=== PATIENT | male | born 1965 | race African-American/Black ===

== ENCOUNTER 2021-01-17 05:55 | Emergency (ER) | payer OTHER ==
[~2021-01-17] VITALS: Ht 180.3 cm; Wt 117.9 kg
[2021-01-17] MEDS ORDERED: EPINEPHRINE HCL 1:1000 1ML 1 MG/ML AMP IM ONE (06:15)
[2021-01-17] MEDS ORDERED: SODIUM CHLORIDE 0.9% 1000ML 1,000 ML IV STA (06:15)
[2021-01-17] MEDS ORDERED: FAMOTIDINE 20 MG/2 ML VIAL IV STA (06:17)
[2021-01-17] MEDS ORDERED: EPINEPHRINE HCL 1:1000 1ML 1 MG/ML AMP ONE (06:23)
[2021-01-17] MEDS ORDERED: DIPHENHYDRAMINE HCL INJ 50 MG/ML VIAL IV ONE (06:30)
[2021-01-17] MEDS ORDERED: METHYLPREDNISOLONE SOD SUCC 125 MG/2ML VIAL IV ONE (06:30)
[2021-01-17] MEDS ORDERED: METHYLPREDNISOLONE SOD SUCC 125 MG/2ML VIAL ONE (06:38)
[2021-01-17] MEDS ORDERED: SODIUM CHLORIDE 0.9% 1000ML 1,000 ML ONE (06:38)
[2021-01-17] MEDS ORDERED: PEPCID20 MG PO (07:40)
[2021-01-17] MEDS ORDERED: PREDNISONE20 MG PO (07:40)
[2021-01-17 07:56] VITALS: BP 128/65
== END 2021-01-17 07:56 | disposition home or self-care (01) ==
LOC: FSED 06:15
DX: I95.9 Hypotension, unspecified (principal); T39.315A Adverse effect of propionic acid derivatives, initial encounter; T78.2XXA Anaphylactic shock, unspecified, initial encounter; I10 Essential (primary) hypertension
CPT/HCPCS: 96372; 96374; 96375; 96376; 99283; J0171; J1200; J2930; J7030

== ENCOUNTER 2024-02-12 09:16 | Inpatient (IN) | payer OTHER ==
[~2024-02-12] VITALS: Ht 180.3 cm; Wt 117.9 kg
[2024-02-12] VITALS (10 sets, daily range): BP systolic 150–178; BP diastolic 65–108; PULSE 63–78; RESP 18–22; TEMP 98.3–98.8; O2SAT 95–99
[~2024-02-12 09:16] MED LIST: PEPCID20 MG PO; PREDNISONE20 MG PO
[2024-02-12] MEDS ORDERED: HYDRALAZINE HC100 MG PO (09:50)
[2024-02-12] MEDS ORDERED: LOSARTAN POTAS100 MG PO (09:50)
[2024-02-12] MEDS ORDERED: CLONIDINE1 EACH TD (09:50)
[2024-02-12] MEDS ORDERED: NIFEDIPINE ER90 MG PO (09:50)
[2024-02-12] MEDS ORDERED: CARVEDILOL12.5 MG PO (09:50)
[2024-02-12] MEDS ORDERED: FUROSEMIDE40 MG PO (09:50)
[2024-02-12] MEDS ORDERED: CLONIDINE HCL0.1 MG PO (09:50)
[2024-02-12 09:53] LABS: BASOPHILS % 0.4 % (0.0-1.0); EOSINOPHILS # (AUTO) 0.2 (0.0-0.4); EOSINOPHILS % 2.4 % (0.0-6.0); HEMATOCRIT 32.6 % (38.2-49.6); HEMOGLOBIN 10.5 g/dL (14.0-18.0); LYMPHOCYTES # (AUTO) 0.8 (1.0-3.2); LYMPHOCYTES % 9.5 % (18.0-39.1); MEAN CORPUSCULAR HEMOGLOBIN 30.1 pg (28-32); MEAN CORPUSCULAR HGB CONC 32.2 g/dL (31-35); MEAN CORPUSCULAR VOLUME 93.4 fL (81-99); MONOCYTES # (AUTO) 0.9 (0.2-0.8); MONOCYTES % 10.6 % (4.4-11.3); NEUTROPHILS # (AUTO) 6.3 (2.1-6.9); NEUTROPHILS % 75.4 % (38.7-80.0); PLATELET COUNT 135 x10e3/uL (140-360); RED BLOOD COUNT 3.49 x10e6/uL (4.3-5.7); RED CELL DISTRIBUTION WIDTH 15.1 % (11.7-14.4); WHITE BLOOD COUNT 8.31 x10e3/uL (4.8-10.8)
[2024-02-12 10:42] LABS: ALBUMIN 3.4 g/dL (3.5-5.0); ALBUMIN/GLOBULIN RATIO 0.9 (0.8-2.0); ANION GAP 13.8 mmol/L (8-16); BILIRUBIN,TOTAL 0.5 mg/dL (0.2-1.2); CALCIUM 8.9 mg/dL (8.4-10.2); CREATININE, SERUM 2.19 mg/dL (0.72-1.25); POTASSIUM 3.8 mmol/L (3.5-5.1); TOTAL PROTEIN 7.1 g/dL (6.5-8.1)
[2024-02-12 10:48] LABS: TROPONIN I 0.054 ng/mL (0-0.300)
[2024-02-12] MEDS ORDERED: SODIUM CHLORIDE FLUSH 10 ML SYR INJ PRN (12:00)
[2024-02-12] MEDS: ONDANSETRON HCL INJ 2MG/ML 2ML 2 MG/ML VIAL IV PRN (12:31)
[2024-02-12] MEDS: FUROSEMIDE INJ 10 MG/ML 2 ML VIAL IV ONE (12:31)
[2024-02-12] MEDS: LABETALOL HCL 5 MG/ML 20ML VIAL IV STA (12:31)
[2024-02-12] MEDS: HYDRALAZINE HCL 20 MG/ML VIAL IV ONE ×2 (14:20→15:40)
[2024-02-12] MEDS: CLONIDINE HCL 0.1 MG TAB PO ONE (15:37)
[2024-02-12] MEDS ORDERED: LIDOCAINE 4% PATCH TP PRN (16:00)
[2024-02-12] MEDS ORDERED: POTASSIUM CHLORIDE 20 MEQ TAB CR PO PRN (16:00)
[2024-02-12] MEDS ORDERED: ACETAMINOPHEN 325 MG TAB PO PRN (16:00)
[2024-02-12] MEDS ORDERED: SIMETHICONE 80 MG CHEW PO PRN (16:00)
[2024-02-12] MEDS ORDERED: ALBUTEROL/IPRATROPIUM 3 ML NEB NEB PRN (16:00)
[2024-02-12] MEDS ORDERED: BENZONATATE 100 MG CAP PO PRN (16:00)
[2024-02-12] MEDS ORDERED: DIPHENHYDRAMINE HCL 25 MG CAP PO PRN (16:00)
[2024-02-12] MEDS ORDERED: MELATONIN 5 MG TABLET PO PRN (16:00)
[2024-02-12] MEDS ORDERED: DEXTROSE 50% SYRINGE 50 ML IV PRN (16:00)
[2024-02-12] MEDS: NIFEDIPINE CR 30 MG TAB PO SCH (16:15)
[2024-02-12] MEDS: CLONIDINE HCL 0.1 MG/24 HR 1 EA PATCH TOP SCH (17:32)
[2024-02-12] MEDS: CARVEDILOL 12.5 MG TAB PO SCH (17:33)
[2024-02-12] MEDS: ENOXAPARIN SOD INJ 40 MG/0.4 ML SYR SC SCH (17:33)
[2024-02-12] MEDS: ASPIRIN 81 MG CHEW TAB PO ONE ×2 (21:30→22:06)
[2024-02-12] MEDS: ATORVASTATIN 40 MG TAB PO SCH (21:30)
[2024-02-12] MEDS: FUROSEMIDE INJ 10 MG/ML 4 ML VIAL IV SCH (21:31)
[2024-02-13] VITALS (11 sets, daily range): BP systolic 163–188; BP diastolic 79–91; PULSE 56–78; RESP 17–21; TEMP 97.7–99.3; O2SAT 95–100
[2024-02-13 05:14] LABS: BASOPHILS % 0.5 % (0.0-1.0); EOSINOPHILS # (AUTO) 0.1 (0.0-0.4); EOSINOPHILS % 2.3 % (0.0-6.0); HEMATOCRIT 29.1 % (38.2-49.6); HEMOGLOBIN 9.5 g/dL (14.0-18.0); LYMPHOCYTES # (AUTO) 1.1 (1.0-3.2); LYMPHOCYTES % 17.4 % (18.0-39.1); MEAN CORPUSCULAR HEMOGLOBIN 30.2 pg (28-32); MEAN CORPUSCULAR HGB CONC 32.6 g/dL (31-35); MEAN CORPUSCULAR VOLUME 92.4 fL (81-99); MONOCYTES % 15.6 % (4.4-11.3); NEUTROPHILS # (AUTO) 3.9 (2.1-6.9); NEUTROPHILS % 63.9 % (38.7-80.0); PLATELET COUNT 121 x10e3/uL (140-360); RED BLOOD COUNT 3.15 x10e6/uL (4.3-5.7); RED CELL DISTRIBUTION WIDTH 15.3 % (11.7-14.4)
[2024-02-13 05:44] LABS: ANION GAP 14.6 mmol/L (8-16); CALCIUM 8.6 mg/dL (8.4-10.2); CREATININE, SERUM 2.32 mg/dL (0.72-1.25); MAGNESIUM 1.9 MG/DL (1.3-2.1); PHOSPHORUS 3.4 MG/DL (2.3-4.7); POTASSIUM 3.6 mmol/L (3.5-5.1)
[2024-02-13 06:04] LABS: THYROID STIMULATING HORMONE 1.304 uIU/mL (0.350-4.940)
[2024-02-13] MEDS: PANTOPRAZOLE SOD 40 MG TABEC PO SCH (08:18)
[2024-02-13] MEDS: ASPIRIN 81 MG ENTERIC COATED PO SCH (08:19)
[2024-02-13] MEDS: DOCUSATE SODIUM 100 MG CAP PO PRN (08:19)
[2024-02-13] MEDS: HYDRALAZINE HCL 100 MG TABLET PO SCH (08:19)
[2024-02-13] MEDS: LOSARTAN POTASSIUM 100 MG TAB PO SCH (08:19)
[2024-02-13] MEDS ORDERED: FUROSEMIDE 40 MG TAB PO SCH (09:00)
[2024-02-13] MEDS: NIFEDIPINE CR 30 MG TAB PO ONE (15:57)
[2024-02-13] MEDS: HYDRALAZINE HCL 20 MG/ML VIAL IV PRN (15:58)
[2024-02-14] VITALS (13 sets, daily range): BP systolic 171–189; BP diastolic 84–92; PULSE 55–75; RESP 18–21; TEMP 98–98.6; O2SAT 95–100
[2024-02-14 05:03] LABS: BASOPHILS % 0.6 % (0.0-1.0); EOSINOPHILS # (AUTO) 0.4 (0.0-0.4); EOSINOPHILS % 7.2 % (0.0-6.0); HEMATOCRIT 31.1 % (38.2-49.6); LYMPHOCYTES % 19.4 % (18.0-39.1); MEAN CORPUSCULAR HEMOGLOBIN 30.1 pg (28-32); MEAN CORPUSCULAR HGB CONC 32.2 g/dL (31-35); MEAN CORPUSCULAR VOLUME 93.7 fL (81-99); MONOCYTES # (AUTO) 0.9 (0.2-0.8); MONOCYTES % 17.2 % (4.4-11.3); NEUTROPHILS # (AUTO) 2.8 (2.1-6.9); NEUTROPHILS % 55.2 % (38.7-80.0); PLATELET COUNT 134 x10e3/uL (140-360); RED BLOOD COUNT 3.32 x10e6/uL (4.3-5.7); WHITE BLOOD COUNT 5.11 x10e3/uL (4.8-10.8)
[2024-02-14 05:28] LABS: ANION GAP 12.6 mmol/L (8-16); CALCIUM 8.6 mg/dL (8.4-10.2); CREATININE, SERUM 2.42 mg/dL (0.72-1.25); POTASSIUM 3.6 mmol/L (3.5-5.1)
[2024-02-14] MEDS: NIFEDIPINE CR 30 MG TAB PO SCH (08:39)
[2024-02-14] MEDS: NICOTINE 21 MG/EA PATCH TOP PRN (10:46)
[2024-02-14] MEDS: HYDRALAZINE HCL 100 MG TABLET PO SCH (14:51)
[2024-02-14 16:07] LABS: CLARITY,URINE CLEAR (CLEAR); COLOR,URINE YELLOW (YELLOW)
[2024-02-14 16:08] LABS: BILIRUBIN,URINE NEGATIVE (NEGATIVE); GLUCOSE, URINE NEGATIVE (NEGATIVE); KETONES,URINE NEGATIVE (NEGATIVE); LEUKOCYTE ESTERASE ,URINE NEGATIVE (NEGATIVE); NITRITE,URINE NEGATIVE (NEGATIVE); PH,URINE 7.5 (5 - 7); PROTEIN,URINE DIPSTICK 2+ (NEGATIVE); URINE UROBILINOGEN 0.2 mg/dL (0.2 - 1)
[2024-02-14 16:30] LABS: EPITHELIAL CELLS,URINE RARE /LPF; RBC,URINE 0-5 /HPF (0-5)
[2024-02-14] MEDS: NIFEDIPINE CR 30 MG TAB PO ONE (16:44)
[2024-02-14 18:04] LABS: CREATININE,URINE RANDOM 46.52 mg/dL (63-166)
[2024-02-15] VITALS (12 sets, daily range): BP systolic 163–199; BP diastolic 83–99; PULSE 61–75; RESP 17–22; TEMP 97.5–98.7; O2SAT 95–100
[2024-02-15 05:20] LABS: BASOPHILS % 0.6 % (0.0-1.0); EOSINOPHILS # (AUTO) 0.3 (0.0-0.4); EOSINOPHILS % 6.2 % (0.0-6.0); HEMATOCRIT 34.4 % (38.2-49.6); HEMOGLOBIN 11.2 g/dL (14.0-18.0); LYMPHOCYTES # (AUTO) 1.1 (1.0-3.2); LYMPHOCYTES % 24.3 % (18.0-39.1); MEAN CORPUSCULAR HEMOGLOBIN 29.9 pg (28-32); MEAN CORPUSCULAR HGB CONC 32.6 g/dL (31-35); MEAN CORPUSCULAR VOLUME 91.7 fL (81-99); MONOCYTES # (AUTO) 0.8 (0.2-0.8); NEUTROPHILS # (AUTO) 2.4 (2.1-6.9); NEUTROPHILS % 51.7 % (38.7-80.0); PLATELET COUNT 146 x10e3/uL (140-360); RED BLOOD COUNT 3.75 x10e6/uL (4.3-5.7); RED CELL DISTRIBUTION WIDTH 14.5 % (11.7-14.4); WHITE BLOOD COUNT 4.65 x10e3/uL (4.8-10.8)
[2024-02-15 05:41] LABS: ANION GAP 13.6 mmol/L (8-16); CALCIUM 8.9 mg/dL (8.4-10.2); CREATININE, SERUM 2.1 mg/dL (0.72-1.25); POTASSIUM 3.6 mmol/L (3.5-5.1)
[2024-02-15] MEDS: NIFEDIPINE CR 30 MG TAB PO SCH (08:24)
[2024-02-15] MEDS: FUROSEMIDE INJ 10 MG/ML 4 ML VIAL IV SCH (08:25)
[2024-02-15] MEDS: CLONIDINE HCL 0.3MG/24 HR PATCH TOP SCH (17:13)
[2024-02-15] MEDS: HYDRALAZINE HCL 100 MG TABLET PO SCH (21:40)
[2024-02-16] VITALS (13 sets, daily range): BP systolic 139–196; BP diastolic 73–92; PULSE 59–73; RESP 16–20; TEMP 97.7–98.3; O2SAT 98–100
[2024-02-16 05:56] LABS: ANION GAP 14.1 mmol/L (8-16); CALCIUM 8.9 mg/dL (8.4-10.2); CREATININE, SERUM 2.24 mg/dL (0.72-1.25); POTASSIUM 4.1 mmol/L (3.5-5.1)
[2024-02-16 06:29] LABS: COMPLEMENT C3 138 mg/dL (82-167)
[2024-02-16 09:38] LABS: COMPLEMENT C4 41 mg/dL (12-38)
[2024-02-16] MEDS ORDERED: ASPIRIN81 MG PO (17:38)
[2024-02-16] MEDS ORDERED: COREG12.5 MG PO (17:39)
[2024-02-16] MEDS ORDERED: LIPITOR20 MG PO (17:39)
[2024-02-16] MEDS ORDERED: HYDRALAZINE HC100 MG PO (17:40)
[2024-02-16] MEDS ORDERED: PROCARDIA XL30 MG PO (17:41)
[2024-02-16] MEDS ORDERED: LASIX40 MG PO (17:43)
[2024-02-16] MEDS ORDERED: CATAPRES-TTS 11 EACH TD (17:45)
[2024-02-17] VITALS (10 sets, daily range): BP systolic 137–173; BP diastolic 68–96; PULSE 59–78; RESP 16–20; TEMP 97–98.5; O2SAT 98–100
[2024-02-17 06:16] LABS: ANION GAP 13.5 mmol/L (8-16); CALCIUM 9.1 mg/dL (8.4-10.2); CREATININE, SERUM 2.84 mg/dL (0.72-1.25); POTASSIUM 4.5 mmol/L (3.5-5.1)
[2024-02-17 11:53] LABS: ANTI DNA DS ANTIBODY <1 IU/mL (0-9)
[2024-02-17 16:02] LABS: GLOBULIN TOTAL 3.7; SPE ALPHA 1 GLOBULIN 0.3; SPE GAMMA GLOBULIN 1.3; SPE TOTAL PROTEIN 6.7
[2024-02-17 16:03] LABS: KAPPA LIGHT CHAINS 121.3; LAMBDA LIGHT CHAINS 83.4
[2024-02-17 16:04] LABS: KAPPA/LAMBDA RATIO 1.45
[2024-02-17 16:05] LABS: A/G RATIO 0.8
[2024-02-17] MEDS: MINOXIDIL 2.5 MG TAB PO SCH (17:39)
[2024-02-17] MEDS: NIFEDIPINE CR 30 MG TAB PO SCH (22:04)
[2024-02-18] VITALS (7 sets, daily range): BP systolic 154–164; BP diastolic 76–84; PULSE 58–82; RESP 18–20; TEMP 97.8–98.7; O2SAT 58–100
[2024-02-18 05:58] LABS: ANION GAP 13.1 mmol/L (8-16); CALCIUM 8.9 mg/dL (8.4-10.2); CREATININE, SERUM 2.85 mg/dL (0.72-1.25); POTASSIUM 4.1 mmol/L (3.5-5.1)
== END 2024-02-18 18:09 | disposition home or self-care (01) | DRG 291 ==
LOC: ER 09:18 → ERHOLD 11:53 → MED/SURG2 16:33
PROVIDERS: ADMIT Internal Medicine; ATTEND Internal Medicine
DX: I13.0 Hypertensive heart and chronic kidney disease with heart failure and stage 1 through stage 4 chronic kidney disease, or unspecified chronic kidney disease (principal); I50.33 Acute on chronic diastolic (congestive) heart failure; I16.1 Hypertensive emergency; N17.9 Acute kidney failure, unspecified; E11.22 Type 2 diabetes mellitus with diabetic chronic kidney disease; I16.0 Hypertensive urgency; N18.32 Chronic kidney disease, stage 3b; M10.9 Gout, unspecified; E78.00 Pure hypercholesterolemia, unspecified; I25.10 Atherosclerotic heart disease of native coronary artery without angina pectoris; F17.210 Nicotine dependence, cigarettes, uncomplicated
CPT/HCPCS: 36415; 71046; 71250; 74176; 76770; 78580; 80048; 80053; 80061; 81001; 82550; 82570; 82948; 83036; 83735; 83880; 84100; 84156; 84165; 84443; 84484; 85025; 85379; 86039; 86160; 86225; 93005; 93306; 93970; 94799; 99252; 99284; A9540; J0360; J1650; J1940; J2405

== ENCOUNTER → 2024-12-24 | Outpatient (REF) | payer OTHER ==
[~2024-12-24] MED LIST changes: +ASPIRIN81 MG PO; +CARVEDILOL12.5 MG PO; +CATAPRES-TTS 11 EACH TD; +CLONIDINE HCL0.1 MG PO; +CLONIDINE1 EACH TD; +COREG12.5 MG PO; +FUROSEMIDE40 MG PO; +HYDRALAZINE HC100 MG PO; +LABETALOL HCL100 MG PO; +LASIX40 MG PO; +LIPITOR20 MG PO; +LOSARTAN POTAS100 MG PO; +MINOXIDIL2.5 MG PO; +NIFEDIPINE ER90 MG PO; +PROCARDIA XL30 MG PO
[2024-12-24 16:02] LABS: BASOPHILS % 0.3 % (0.0-1.0); EOSINOPHILS % 5.2 % (0.0-6.0); LYMPHOCYTES % 24.4 % (18.0-39.1); MONOCYTES % 21.0 % (4.4-11.3); NEUTROPHILS % 48.8 % (38.7-80.0); RED CELL DISTRIBUTION WIDTH 17.5 % (11.7-14.4)
== END ==
LOC: RAD 15:18 → EDSTATUS 01-03 09:30
PROVIDERS: ATTEND Internal Medicine Gastroenterology
DX: Z01.818 Encounter for other preprocedural examination (principal); Z12.11 Encounter for screening for malignant neoplasm of colon
CPT/HCPCS: 36415; 85025; 93005